=== PATIENT | female | born 1995 | race Two or more races ===

== ENCOUNTER 2016-09-01 10:00 | Emergency (ER) | payer OTHER ==
[~2016-09-01 10:00] MED LIST: NO MEDICATIONS
== END 2016-09-01 10:46 | disposition home or self-care (01) ==
LOC: SED 10:00
DX: L73.9 Follicular disorder, unspecified (principal)
CPT/HCPCS: 99282

== ENCOUNTER 2016-12-08 02:29 | Emergency (ER) | payer OTHER ==
--- NOTE | ~2016-12-08 | EKG ---
PATIENT: ANDRIY FERNANDEZ UNIT #: [id number] Ventricular Rate: 88 BPM Atrial Rate: 88 BPM P-R Interval: 126 ms QRS Duration: 68 ms Q-T Interval: 354 ms QTC Calculation(Bezet): 428 ms P Crucible: 42 degrees Calculated R Crucible: 24 degrees Calculated T Crucible: 20 degrees Diagnosis Line: Normal sinus rhythm Diagnosis Line: Normal ECG Diagnosis Line: No previous ECGs available Diagnosis Line: Confirmed by JAYESH CASTRO MD ([id number]) on Diagnosis Line: 12/08/2016 10:37:41 PM INTERPRETING MD: [email or web address]
== END 2016-12-08 04:15 | disposition home or self-care (01) ==
LOC: CED 02:29
DX: M94.0 Chondrocostal junction syndrome [Tietze] (principal); J45.909 Unspecified asthma, uncomplicated; Z88.8 Allergy status to other drugs, medicaments and biological substances
CPT/HCPCS: 93005; 99284

== ENCOUNTER 2017-02-13 00:15 | Emergency (ER) | payer OTHER ==
[~2017-02-13] VITALS: Ht 160 cm; Wt 65.3 kg
== END 2017-02-13 01:50 | disposition home or self-care (01) ==
LOC: CED 00:15
DX: R51 Headache (principal); J45.909 Unspecified asthma, uncomplicated
CPT/HCPCS: 84703; 99284; J1885